=== PATIENT | male | born 1980 ===

== ENCOUNTER 2021-05-14 21:40 | Emergency (ER) | payer SELFPAY ==
--- NOTE | 2021-05-14 22:09 | EDM.PDOC ---
ED HPI GENERAL MEDICAL PROBLEM - General Chief Complaint: General Stated Complaint: laceration left thumb Time Seen by Provider: 05/14/21 22:09 Source of Information: Reports: Patient History Limitations: Reports: No Limitations - History of Present Illness INITIAL COMMENTS - FREE TEXT/NARRATIVE: Jacek, 40-year-old male, presents with a laceration to his lateral distal phalange of the left first digit. Was helping a friend she driving where he had put a new blade in his utility knife, while cutting knife jumped causing laceration to the thumb. He is up-to-date on his tetanus status stating 3 years ago stepped on a nail. Has no other injury or concerns, bleeding was hard to control initially but has been controlled upon his arrival. Onset: Today, Sudden Duration: Minutes: Location: Reports: Upper Extremity, Left Quality: Reports: Burning Severity: Moderate Improves with: Reports: Immobilization Worsens with: Reports: Movement Past Medical History - Past Health History Medical/Surgical History: Denies Medical/Surgical History Social & Family History - Family History Family Medical History: No Pertinent Family History ED ROS GENERAL - Review of Systems Review Of Systems: Comprehensive ROS is negative, except as noted in HPI. ED EXAM, GENERAL - Physical Exam Exam: See Below Free Text/Narrative:: Alert oriented in no distress. HEENT is negative discharge or deformity. He speaks in full sentences with no difficulty. There is no evidence of respiratory distress with no audible wheezes. Radial pulses present with focused examination to the left first digit. There is a 1 cm laceration partial-thickness on the outer margin nearly full- thickness to the middle. This is to the lateral aspect of the distal flanks of the first digit. Somewhat gaping when the digit is bandaged but approximate appropriately when held straight. We discussed lidocaine versus suturing without he agrees to try it without lidocaine. No other injury is noted full range of motion to the hand and digits is noted. ED GENERAL MEDICAL PROCEDURES - Laceration/Wound Repair Left Lateral Distal Digit - 1st (Thumb) Appearance: Clean Distal NVT: Neuro [facility] V[facility] Intact Skin Prep: Providone-Iodine (Betadine) Closed with: Sutures Suture Size: 4-0 # of Sutures: 3 Drain Placement: No Sterile Dressing Applied: Provider Tetanus Status Addressed: Yes (Up-to-date) Progress/Comments: Approximate nicely. Cleansed and dried. Triple antibiotic applied with tube gauze to hold in place. Course - Orders/Labs/Meds Meds: Medications Discontinued Medications Generic Name Dose Route Start Last Admin Trade Name Narciso PRN Reason Stop Dose Admin Neomycin/Polymyxin/Bacitracin 1 each 05/14/21 22:28 Bacitracin/Neomycin/Polymyxin B Oint 0.9 Gm U/D Packet TOP 05/14/21 22:29 ONETIME ONE Departure - Departure Time of Disposition: 22:30 Disposition: Home, Self-Care 01 Clinical Impression: Laceration - Discharge Information *PRESCRIPTION DRUG MONITORING PROGRAM REVIEWED*: Not Applicable *COPY OF PRESCRIPTION DRUG MONITORING REPORT IN PATIENT MANNY: Not Applicable Instructions: Laceration Care, Adult Referrals: Briseyda Blackburn MD [Primary Care Provider] - Forms: ED Department Discharge Additional Instructions: Keep this clean and dry as possible. You may bathe but no soaking or swimming until sutures are removed in 10 days. Change dressing tomorrow morning after you wake up and then twice daily with Band-Aid to keep clean when in a dirty environment. Follow-up with clinic of your choice for suture removal. Avoid strenuous activity that may stretch or pull against sutures. - Problem List & Annotations (1) Laceration SNOMED Code(s): 870311667 Code(s): [id number] - Status: Acute Priority: High - Problem List Review Problem List Initiated/Reviewed/Updated: Yes - Assessment/Plan Plan: Keep this clean and dry as possible. You may bathe but no soaking or swimming until sutures are removed in 10 days. Change dressing tomorrow morning after you wake up and then twice daily with Band-Aid to keep clean when in a dirty environment. Follow-up with clinic of your choice for suture removal. Avoid strenuous activity that may stretch or pull against sutures.
[2021-05-14] MEDS ORDERED: Bacitracin/Neomycin/Polymyxin B Oint 0.9 GM U/D Packet TOP ONE (22:28)
== END 2021-05-14 22:38 | disposition home or self-care (01) ==
LOC: KA.ED 21:40
DX: S61.012A Laceration without foreign body of left thumb without damage to nail, initial encounter (principal); W26.0XXA Contact with knife, initial encounter
CPT/HCPCS: 12001; 99282-25; 99283